=== PATIENT | female | born 1960 | race American Indian/Alaskan Native ===

== ENCOUNTER 2021-01-18 21:18 | Emergency (ER) | payer SELFPAY ==
[2021-01-18 22:47] LABS: Basophils # (Auto) 0.1 K/mm3 (0.0-0.1); Basophils % (Auto) 1.2 % (0.0-1.8); Eosinophils # (Auto) 0.1 K/mm3 (0.0-0.4); Eosinophils % (Auto) 1.5 % (0.0-4.3); Hematocrit 37.4 % (30.3-42.9); Hemoglobin 12.5 gm/dl (10.1-14.3); Lymphocytes # (Auto) 1.3 K/mm3 (1.2-5.4); Lymphocytes % (Auto) 25.2 % (13.4-35.0); Mean Corpuscular HGB Conc 34 % (30-34); Mean Corpuscular Volume 83 fl (79-97); Monocytes # (Auto) 0.4 K/mm3 (0.0-0.8); Platelet Count 254 K/mm3 (140-440); Red Cell Distribution Width 14.5 % (13.2-15.2)
[2021-01-18 23:13] LABS: Alanine Aminotransferase 9 units/L (7-56); Albumin 4.4 g/dL (3.9-5); BUN/Creatinine Ratio 11; Blood Urea Nitrogen 9 mg/dL (7-17); Calcium 9.6 mg/dL (8.4-10.2); Hemolysis Index 4
[2021-01-19] MEDS ORDERED: ASPIRIN 325 MG TAB PO ONE (00:01)
--- NOTE | 2021-01-19 00:53 | XRay Report ---
CHEST 1 VIEW INDICATION: chest pain COMPARISON: None FINDINGS: Support devices: None Heart: Normal Lungs/Pleura: No acute pulmonary or pleural findings. IMPRESSION: 1. No acute disease. Signer Name: Terence Johnson MD Signed: 01/19/2021 12:48 AM Workstation Name: [id number]
[2021-01-19] MEDS ORDERED: ASPIRIN 325 MG TAB ONE (02:08)
--- NOTE | 2021-01-19 03:34 | Emergency Department Report ---
ED General Adult HPI - General Chief complaint: Arrhythmia/Palpitations Stated complaint: ELEVATED HEART RATE Source: patient Mode of arrival: Ambulatory Limitations: No Limitations - History of Present Illness Initial comments: Patient is a 60-year-old -Tongan female with no past medical history presents to the ED with complaint of acute onset persistent intermittent palpitations and elevated heart rate the last 2 hours. Patient states that she was at home vomiting some food in her microwave oven when her watch sent her text alerting her that she had experienced elevated heart rate. Patient states that she then felt lightheadedness and went ahead and checked her heart rate manually at home. Patient states that her heart rate at the time was 106 bpm. Patient states that she then called EMS who also came and evaluated the and at the time her heart rate was 102 bpm. Patient states that she has previously been evaluated by her transformer repairer with a Holter monitor and all the findings were unremarkable about 2 weeks ago. Patient states that she is now scheduled for arm echocardiogram and asked stress test in the next 10 days. Patient denies chest pain, shortness of breath, headache, dizziness, syncope, change in vision, neck pain, back pain, abdominal pain, nausea and vomiting or diarrhea, fever and chills or cough and sore throat. MD Complaint: Elevated heart rate; palpitations -: Sudden, hour(s) (1) Location: chest Radiation: non-radiation Severity scale (0 -10): 1 Quality: dull Consistency: intermittent Improves with: none Worsens with: none Associated Symptoms: denies other symptoms. denies: confusion, chest pain, cough, diaphoresis, fever/chills, headaches, loss of appetite, malaise, n ausea/vomiting, rash, seizure, shortness of breath, syncope, weakness, other Treatments Prior to Arrival: none - Related Data Allergies Allergy/AdvReac Type Severity Reaction Status Date / Time No Known Allergies Allergy Verified 01/19/21 04:03 ED Review of Systems ROS: Stated complaint: ELEVATED HEART RATE Other details as noted in HPI Constitutional: denies: chills, fever Eyes: denies: eye pain, eye discharge, vision change ENT: denies: ear pain, throat pain Respiratory: denies: cough, shortness of breath, wheezing Cardiovascular: palpitations. denies: chest pain Endocrine: no symptoms reported Gastrointestinal: denies: abdominal pain, nausea, vomiting, diarrhea Genitourinary: denies: urgency, dysuria, discharge Musculoskeletal: denies: back pain, joint swelling, arthralgia Skin: denies: rash, lesions Neurological: denies: headache, weakness, paresthesias Psychiatric: denies: anxiety, depression Hematological/Lymphatic: denies: easy bleeding, easy bruising ED Past Medical Hx - Past Medical History Additional medical history: HX OF FAST HEART RATE - Social History Smoking Status: Never Smoker Substance Use Type: None ED Physical Exam - General Limitations: No Limitations General appearance: alert, in no apparent distress, anxious - Head Head exam: Present: atraumatic, normocephalic - Eye Eye exam: Present: normal appearance, PERRL, EOMI Pupils: Present: normal accommodation - ENT ENT exam: Present: normal exam, normal orophraynx, mucous membranes moist, TM's normal bilaterally, normal external ear exam - Neck Neck exam: Present: normal inspection, full ROM - Respiratory Respiratory exam: Present: normal lung sounds bilaterally. Absent: respiratory distress, wheezes, rales, rhonchi, stridor, chest wall tenderness, accessory muscle use, decreased breath sounds, prolonged expiratory - Cardiovascular Cardiovascular Exam: Present: regular rate, normal rhythm, normal heart sounds. Absent: systolic murmur, diastolic murmur, rubs, gallop - GI/Abdominal GI/Abdominal exam: Present: soft, normal bowel sounds. Absent: tenderness, guarding, rebound, hyperactive bowel sounds, hypoactive bowel sounds, organomegaly - Extremities Exam Extremities exam: Present: normal inspection, full ROM, normal capillary refill - Back Exam Back exam: Present: normal inspection, full ROM. Absent: tenderness, CVA tenderness (R), CVA tenderness (L), muscle spasm, paraspinal tenderness, vertebral tenderness - Neurological Exam Neurological exam: Present: alert, oriented X3, CN II-XII intact, normal gait, reflexes normal - Psychiatric Psychiatric exam: Present: normal affect, normal mood, anxious - Skin Skin exam: Present: warm, dry, intact, normal color. Absent: rash ED Course Vital Signs 01/18/21 01/19/21 21:52 03:49 Temperature 99.2 F 98.2 F Pulse Rate 86 81 Respiratory 16 18 Rate Blood Pressure 141/64 Blood Pressure 139/53 [Left] O2 Sat by Pulse 100 100 Oximetry ED Medical Decision Making - Lab Data Result diagrams: 01/18/21 22:36 01/18/21 22:36 - EKG Data EKG shows normal: sinus rhythm Rate: normal - EKG Data Interpretation: normal EKG 01/19/21 05:06 EKG shows normal sinus rhythm with a ventricular rate of [address] or T wave abnormalities. - Radiology Data Radiology results: report reviewed, image reviewed [facility] [address] [place] [address] XRay Report Signed Patient: SHELBI MONROY MR#: [id number] : 1960 Acct:[id number] Age/Sex: 60 / F ADM Date: 01/18/21 Loc: ED Attending Dr: Ordering Physician: KELLIE SON Date of Service: 01/19/21 Procedure(s): XR chest 1V ap Accession Number(s): [id number] cc: KELLIE SON Fluoro Time In Minutes: CHEST 1 VIEW INDICATION: chest pain COMPARISON: None FINDINGS: Support devices: None Heart: Normal Lungs/Pleura: No acute pulmonary or pleural findings. IMPRESSION: 1. No acute disease. Signer Name: Terence Johnson MD Signed: 01/19/2021 12:48 AM Workstation Name: [id number] Transcribed By: TM Dictated By: Terence Johnson MD Electronically Authenticated By: Terence Johnson MD Signed Date/Time: 01/19/2147 DD/ TD/TT: - Medical Decision Making This is a 60-year-old -Tongan female with no past medical history presents to the ED with complaint of acute onset persistent intermittent palpitations and elevated heart rate the last 2 hours. Patient states that she was at home vomiting some food in her microwave oven when her watch sent her text alerting her that she had experienced elevated heart rate. Patient states that she then felt lightheadedness and went ahead and checked her heart rate manually at home. Patient states that her heart rate at the time was 106 bpm. Patient states that she then called EMS who also came and evaluated the and at the time her heart rate was 102 bpm. Patient states that she has previously be en evaluated by her transformer repairer with a Holter monitor and all the findings were unremarkable about 2 weeks ago. Patient states that she is now scheduled for arm echocardiogram and asked stress test in the next 10 days. In the ED, patient is alert and oriented x3 and is not in any distress. Patient was treated in the ED with aspirin. EKG shows normal sinus rhythm with a ventricular rate of [address] or T wave abnormalities. Chest x-ray shows no acute cardiopulmonary abnormalities or pneumonitis. Lab test results were reviewed and are all nonactionable including initial and 3-hour repeat troponin levels. Patient's heart score is 1 based on her age and gender. Patient is PERC negative per Wells criteria. Patient has not had any palpitations during her ED course of treatment. Patient was discharged home and advised to continue taking 81 mg aspirin tablets daily, and was given a referral to a transformer repairer Dr. Sanford for follow-up. Patient was also advised to contact Dr. Sanford's office first thing in the morning on Thursday, January 21 2021 to schedule a follow-up appointment wit Dr. Sanford. Patient was also advised return to the ED immediately if symptoms get worse. - Differential Diagnosis Palpitations; ACS; PE; Pneumonia; Anxiety Critical care attestation.: If time is entered above; I have spent that time in minutes in the direct care of this critically ill patient, excluding procedure time. ED Disposition Clinical Impression: Anxiety as acute reaction to exceptional stress, Intermittent palpitations Disposition: DC-01 TO HOME OR SELFCARE Is pt being admited?: No Does the pt Need Aspirin: No Condition: Stable Instructions: Generalized Anxiety Disorder, Adult, Palpitations, [id number] Additional Instructions: All lab test results were reviewed and are all nonactionable. EKG shows normal sinus rhythm with a ventricular rate of [address] or T wave abnormalities. Chest x-ray shows no acute cardiopulmonary abnormalities or pneumonitis. Therefore follow-up with your transformer repairer or with Dr. Sanford, the transformer repairer in 2 to 3 days for reevaluation. Return to the ED immediately if symptoms get worse. Referrals: FANTASMA SANFORD MD [Staff Physician] - 3-5 Days Time of Disposition: 03:32 Print Language: SOUTH [place]UD[place]
[2021-01-19 03:50] VITALS: BP 139/53
== END 2021-01-19 04:02 | disposition home or self-care (01) ==
LOC: ED 21:18
DX: F41.1 Generalized anxiety disorder (principal); F43.0 Acute stress reaction; R00.2 Palpitations; Z79.899 Other long term (current) drug therapy
CPT/HCPCS: 36415; 71045; 80053; 82550; 83735; 83880; 84443; 84484; 85025; 93005